=== PATIENT | female | born 1965 | race Caucasian/White ===

== ENCOUNTER 2019-05-29 17:13 | Inpatient (IN) | payer MEDICARE, MEDICAID ==
[~2019-05-29] VITALS: Ht 149.9 cm; Wt 43.7 kg
[~2019-05-29 17:13] MED LIST: EFAVIRENZ PO; EMTRICITAB PO; ESCI5TAB PO; LEVO100 PO; TENOFOVIR PO
[2019-05-29] MEDS ORDERED: SERT50TA12 PO (20:11)
[2019-05-29] MEDS ORDERED: LEVO150 PO (20:11)
[2019-05-29] MEDS ORDERED: ALBU8TAB PO (20:11)
[2019-05-29] MEDS ORDERED: LORA10TA60 PO (20:11)
[2019-05-29] MEDS ORDERED: ERGO500014 PO (20:11)
[2019-05-29] MEDS ORDERED: ALEN70SO3 PO (20:11)
[2019-05-29] MEDS ORDERED: ADV100 IH (20:11)
[2019-05-29] MEDS ORDERED: BICT1TAB PO (20:11)
[2019-05-29 23:35] LABS: AMPHET/METH SCREEN,URINE NEGATIVE (NEGATIVE); BARBITURATE SCREEN, URINE NEGATIVE (NEGATIVE); BENZODIAZEPINES SCREEN,URINE NEGATIVE (NEGATIVE); CANNABINOID SCREEN,URINE NEGATIVE (NEGATIVE); COCAINE SCREEN,URINE POSITIVE (NEGATIVE); METHADONE SCREEN, URINE NEGATIVE (NEGATIVE); OPIATE SCREEN,URINE NEGATIVE (NEGATIVE)
[2019-05-29 23:38] LABS: PHENCYCLIDINE SCREEN,URINE NEGATIVE (NEGATIVE)
[2019-05-30] MEDS ORDERED: ALBUTEROL SULFATE HFA 90 MCG/PUFF 8 GM INHALER IH ONE
[2019-05-30 00:35] LABS: BASOPHILS % (AUTO) 0.4 % (0.0-2.0); HEMATOCRIT 39.6 % (36-46); LYMPHOCYTES # (AUTO) 0.8 K/uL (1.0-4.8); LYMPHOCYTES % (AUTO) 47.9 % (22.0-44.0); MEAN CORPUSCULAR HEMOGLOBIN 32.7 pg (26.0-34.0); MEAN CORPUSCULAR HGB CONC 32.8 G/dL (31.0-37.0); MEAN CORPUSCULAR VOLUME 100 fL (80-100); MONOCYTES # (AUTO) 0.2 K/uL (0.1-1.0); MONOCYTES % (AUTO) 11.8 % (2.0-9.0); NEUTROPHILS # (AUTO) 0.6 K/uL (1.8-7.7); NEUTROPHILS % (AUTO) 36.9 % (40.0-70.0); RED BLOOD CELL COUNT(AUTO) 3.97 MIL/uL (4.00-5.20); RED CELL DISTRIBUTION WIDTH 13.3 % (11.5-14.5)
[2019-05-30 00:37] LABS: CHLORIDE 110 mmol/L (98-107); POTASSIUM 3.8 mmol/L (3.5-5.1); SODIUM SERUM 146 mmol/L (136-145)
[2019-05-30 00:38] LABS: ANION GAP 7 mmol/L (8-16); CARBON DIOXIDE 29 mmol/L (22-29); CREATININE 0.82 mg/dL (0.60-1.30); GLOMERULAR FILTR. RATE CALC > 60 mL/min (>60); GLUCOSE,RANDOM 86 mg/dL (70-110); UREA NITROGEN, BLOOD 10 mg/dL (7-18)
[2019-05-30 00:53] LABS: ALANINE AMINOTRANSFERASE 32 U/L (12-78); ALBUMIN 2.7 g/dL (3.4-5.0); ALKALINE PHOSPHATASE 94 U/L (46-116); ASPARTATE AMINOTRANSFERASE 37 U/L (15-37); BILIRUBIN,TOTAL 0.5 mg/dL (0.1-1.0); PLATELET COUNT (AUTO) 84 K/uL (150-450); THYROID STIMULATING HORMONE 0.18 uIU/mL (0.36-3.74); TOTAL PROTEIN, SERUM 6.1 g/dL (6.4-8.2)
[2019-05-30] MEDS ORDERED: LORazepam 2 MG TABLET PO PRN (03:30)
[2019-05-30] MEDS ORDERED: HALOPERIDOL 5 MG TABLET PO PRN (03:30)
[2019-05-30] MEDS ORDERED: ZOLPIDEM TARTRATE 10 MG TABLET PO PRN (03:30)
[2019-05-30 04:10] VITALS: BP 138/73
[2019-05-30] MEDS ORDERED: ONDANSETRON HCL 4 MG TABLET PO PRN (08:30)
[2019-05-30] MEDS ORDERED: CloNIDine HCL 0.1 MG TABLET PO PRN (08:30)
[2019-05-30] MEDS ORDERED: PETROLATUM,WHITE 28 GM JELLY TP PRN (08:30)
[2019-05-30] MEDS ORDERED: MAG HYDROX/AL HYDROX/SIMETH ES 30 ML SUSPENSION UDCUP PO PRN (08:30)
[2019-05-30] MEDS ORDERED: IBUPROFEN 600 MG TABLET PO PRN (08:30)
[2019-05-30] MEDS ORDERED: BENZOCAINE/MENTHOL LOZENGE MM PRN (08:30)
[2019-05-30] MEDS ORDERED: ACETAMINOPHEN 325 MG TABLET PO PRN (08:30)
[2019-05-30] MEDS ORDERED: MAGNESIUM HYDROXIDE SUSPENSION 30 ML UDCUP PO PRN (08:30)
[2019-05-30] MEDS ORDERED: BACITRACIN 28.4 GM OINTMENT TP PRN (08:30)
[2019-05-30] MEDS ORDERED: LOPERAMIDE HCL 2 MG CAPSULE PO PRN (08:30)
[2019-05-30] MEDS: LEVOTHYROXINE SODIUM 150 MCG TABLET PO SCH (08:30)
[2019-05-30 08:49] VITALS: BP 137/69
[2019-05-30] MEDS: OMEPRAZOLE 20 MG CAPSULE PO SCH (09:00)
[2019-05-30] MEDS: DOCUSATE SODIUM 100 MG CAPSULE PO SCH (09:00)
[2019-05-30] MEDS: FLUTICASONE/VILANTEROL 100-25 MCG/INH INHALER [14] IH SCH (09:00)
[2019-05-30] MEDS ORDERED: ERGOCALCIFEROL (VIT D2) 50,000 UNITS CAPSULE PO SCH (09:00)
[2019-05-30] MEDS: LORATADINE 10 MG TABLET PO SCH (09:00)
[2019-05-30] MEDS: ESCITALOPRAM OXALATE 10 MG TABLET PO SCH (09:33)
[2019-05-30] MEDS: *PATIENT'S OWN MED [ENTER DRUG, DOSE, FREQUENCY IN COMMENTS] CLINICAL SCH ×2 (10:19→10:32)
[2019-05-30] MEDS ORDERED: *PATIENT'S OWN MED [ENTER DRUG, DOSE, FREQUENCY IN COMMENTS] CLINICAL ONE (10:30)
[2019-05-30] MEDS: BIKTARVY 50MG-200MG-25MG TABLET PO SCH (11:00)
[2019-05-30] MEDS ORDERED: [UNRECOGNIZED DRUG - OTHER] PO SCH (21:00)
[2019-05-31] MEDS: LEVOTHYROXINE SODIUM 150 MCG TABLET PO SCH (06:10)
[2019-05-31] MEDS: DOCUSATE SODIUM 100 MG CAPSULE PO SCH ×2 (09:00→10:06)
[2019-05-31] MEDS: FLUTICASONE/VILANTEROL 100-25 MCG/INH INHALER [14] IH SCH ×2 (09:00→10:07)
[2019-05-31] MEDS: OMEPRAZOLE 20 MG CAPSULE PO SCH ×2 (09:00→10:06)
[2019-05-31] MEDS: ESCITALOPRAM OXALATE 10 MG TABLET PO SCH ×2 (09:00→10:07)
[2019-05-31] MEDS: LORATADINE 10 MG TABLET PO SCH (10:07)
[2019-05-31] MEDS: BIKTARVY 50MG-200MG-25MG TABLET PO SCH (10:08)
[2019-06-01] MEDS: LEVOTHYROXINE SODIUM 150 MCG TABLET PO SCH (07:04)
[2019-06-01] MEDS: OMEPRAZOLE 20 MG CAPSULE PO SCH (09:00)
[2019-06-01] MEDS: *PATIENT'S OWN MED [ENTER DRUG, DOSE, FREQUENCY IN COMMENTS] CLINICAL SCH (09:00)
[2019-06-01] MEDS: DOCUSATE SODIUM 100 MG CAPSULE PO SCH (09:00)
[2019-06-01 09:40] VITALS: BP 120/73
[2019-06-01] MEDS: LORATADINE 10 MG TABLET PO SCH (09:57)
[2019-06-01] MEDS: BIKTARVY 50MG-200MG-25MG TABLET PO SCH (09:57)
[2019-06-01] MEDS: ESCITALOPRAM OXALATE 10 MG TABLET PO SCH (09:58)
[2019-06-01] MEDS: FLUTICASONE/VILANTEROL 100-25 MCG/INH INHALER [14] IH SCH (15:30)
[2019-06-01] MEDS ORDERED: ESCI10TA54 PO (16:31)
[2019-06-01] MEDS ORDERED: LORA10TA60 PO (17:24)
[2019-06-01] MEDS ORDERED: OMEP10SU2 PO ×2 (17:29→17:30)
[2019-06-01] MEDS ORDERED: DOCU100C33 PO (17:31)
[2019-06-01] MEDS ORDERED: DOCU-119 PO (17:32)
[2019-06-04] MEDS ORDERED: ALENDRONATE SODIUM 70 MG TABLET PO SCH (06:30)
[2019-06-04] MEDS ORDERED: ERGOCALCIFEROL (VIT D2) 50,000 UNITS CAPSULE PO SCH (09:00)
== END 2019-06-01 18:00 | disposition home or self-care (01) | DRG 885 ==
LOC: EMS 17:13 → 3EX 05-30 03:50
PROVIDERS: ADMIT Psychiatry & Neurology Child & Adolescent Psychiatry; ATTEND Psychiatry & Neurology Child & Adolescent Psychiatry
DX: F33.2 Major depressive disorder, recurrent severe without psychotic features (principal); R45.851 Suicidal ideations; B19.20 Unspecified viral hepatitis C without hepatic coma; E03.9 Hypothyroidism, unspecified; F14.10 Cocaine abuse, uncomplicated; F41.9 Anxiety disorder, unspecified; G47.00 Insomnia, unspecified; H91.90 Unspecified hearing loss, unspecified ear; I10 Essential (primary) hypertension; J45.909 Unspecified asthma, uncomplicated; K59.00 Constipation, unspecified; Z79.899 Other long term (current) drug therapy; Z88.0 Allergy status to penicillin
CPT/HCPCS: 84443; G0378; G0480; J3535